=== PATIENT | female | born 1965 | race Caucasian/White ===

== ENCOUNTER 2017-04-09 14:17 | Emergency (ER) | payer MEDICAID ==
[2017-04-09] MEDS ORDERED: ONDANSETRON HCL IV 4 MG/2 ML VIAL IVP ONE (14:39)
[2017-04-09] MEDS ORDERED: 0.9 % SODIUM CHLORIDE 1000ML 1,000 ML IV SCH (14:45)
[2017-04-09 15:02] LABS: BASO % 0.1 % (0-6); HEMOGLOBIN 15.1 gm/dl (11.6-16.0); LYMPH % 5.3 % (16-45); MEAN CELL VOLUME 89.7 fl (81-97); MEAN CORPUSCULAR HEMOGLOBIN 29.4 pg (27-33); MEAN CORPUSCULAR HGB CONC 32.8 g/dl (32-36); MEAN PLATELET VOLUME 8.8 fl (7.4-10.4); MONO % 3.1 % (0-9); PLATELET COUNT 380 K/uL (130-400); RED BLOOD COUNT 5.13 M/uL (3.80-5.40); RED CELL DISTRIBUTION WIDTH 12.5 % (11.5-14.5); WHITE BLOOD COUNT W/O DIFF 12.6 K/uL (4.2-12.2)
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
[2017-04-09 15:14] LABS: ALB/GLOB RATIO 1.3 (1.1-1.8); ALKALINE PHOSPHATASE 89 U/L (38-126); ALT/SGPT 24 U/L (9-52); ANION GAP 4.2 (7-16); AST/SGOT 18 U/L (14-36); BILIRUBIN,TOTAL 0.37 mg/dL (0.2-1.3); BLOOD UREA NITROGEN 11 mg/dL (7-17); CARBON DIOXIDE 27.8 mmol/L (22-30); CREATININE 0.7 mg/dL (0.52-1.04); EST GLOMERULAR FILTRATION RATE > 60 ml/min; GLUCOSE,RANDOM 96 mg/dL (70-110); LIPASE 121 U/L (23-300); TOTAL PROTEIN 7.1 gm/dL (6.3-8.2)
== END 2017-04-09 16:25 | disposition home or self-care (01) ==
LOC: ER 14:17
DX: R10.31 Right lower quadrant pain (principal); R11.2 Nausea with vomiting, unspecified
CPT/HCPCS: 99284 ×2; 96374; 83690; 80053; 85027; 74177; Q9967; J2405; J7030

== ENCOUNTER 2018-07-10 | Observation (INO) | payer MEDICARE, MEDICAID ==
[2018-07-10] MEDS ORDERED: ASPIRIN 81 MG CHEWABLE TABLET PO ONE (00:09)
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
[2018-07-10 00:37] LABS: BASO % 0.7 % (0-6); EOS % 5.2 % (0-6); GRAN % 40.7 % (47-80); HEMATOCRIT 42.9 % (35.0-47.0); HEMOGLOBIN 14.1 gm/dl (11.6-16.0); LYMPH % 45.1 % (16-45); MEAN CELL VOLUME 91.9 fl (81-97); MEAN CORPUSCULAR HEMOGLOBIN 30.2 pg (27-33); MEAN CORPUSCULAR HGB CONC 32.9 g/dl (32-36); MEAN PLATELET VOLUME 9.8 fl (7.4-10.4); MONO % 8.3 % (0-9); PLATELET COUNT 309 K/uL (130-400); RED BLOOD COUNT 4.67 M/uL (3.80-5.40); RED CELL DISTRIBUTION WIDTH 12.6 % (11.5-14.5); WHITE BLOOD COUNT W/O DIFF 6.7 K/uL (4.2-12.2)
[2018-07-10 00:38] LABS: BILIRUBIN,TOTAL < 0.20 mg/dL (0.2-1.0); BLOOD UREA NITROGEN 11 mg/dL (6-20); CREATININE 0.6 mg/dL (0.5-0.9); EST GLOMERULAR FILTRATION RATE > 60 mL/min
[2018-07-10 00:39] LABS: TOTAL PROTEIN 7.4 g/dL (6.6-8.7)
[2018-07-10 00:41] LABS: GLUCOSE,RANDOM 101 mg/dL (74-109)
[2018-07-10 00:44] LABS: ALB/GLOB RATIO 1.2 (1.1-1.8); ALBUMIN 4.1 g/dL (4.0-5.0); ALKALINE PHOSPHATASE 75 U/L (35-104); ALT/SGPT 15 U/L (<33); AST/SGOT 22 U/L (10.0-35.0)
[2018-07-10] MEDS ORDERED: ONDANSETRON 4 MG ODT TABLET SL ONE (00:50)
[2018-07-10] MEDS ORDERED: KETOROLAC 30 MG/ML VIAL IVP ONE (01:18)
[2018-07-10] MEDS ORDERED: 0.9 % SODIUM CHLORIDE 1000ML 1,000 ML IV PRN (01:51)
[2018-07-10] MEDS ORDERED: ALBUTEROL HFA 8 GM INHALER INH SCH (01:51)
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
[2018-07-10] MEDS ORDERED: ONDANSETRON 4 MG ODT TABLET PO SCH (10:00)
--- NOTE | 2018-07-10 10:13 | RADIOLOGY REPORT ---
EXAM: CHEST, TWO VIEWS HISTORY: DIFFICULTY IN BREATHING. TECHNIQUE: Two views of the chest were obtained. Comparison: 10/07/11. FINDINGS: The heart size is normal. The lungs are hyperinflated. Minimal biapical pleural thickening. No infiltrate or pleural effusion. IMPRESSION: HYPERINFLATED LUNGS. MINIMAL BIAPICAL PLEURAL THICKENING. NO INFILTRATE OR PLEURAL EFFUSION. JOB NUMBER: [id number] MTDD
== END 2018-07-10 11:27 | disposition home or self-care (01) ==
LOC: ER → MEDSURG 01:30
PROVIDERS: ADMIT Internal Medicine; ATTEND Internal Medicine
DX: R07.9 Chest pain, unspecified (principal); N17.9 Acute kidney failure, unspecified; F31.9 Bipolar disorder, unspecified; R56.9 Unspecified convulsions; F60.3 Borderline personality disorder; F17.210 Nicotine dependence, cigarettes, uncomplicated; Z87.828 Personal history of other (healed) physical injury and trauma; Z85.41 Personal history of malignant neoplasm of cervix uteri
CPT/HCPCS: 71046; 80053; 84484; 85025; 85379; 93005; 93010; 96374; 99220; 99285; J1885